=== PATIENT | female | born 1995 ===

== ENCOUNTER 2023-04-18 13:19 | Inpatient (IN) | payer BC ==
[2023-04-18] MEDS ORDERED: Tranexamic Acid 1,000 MG in Sodium Chloride 0.9% 100 ML IV PRN (17:43)
[2023-04-18] MEDS ORDERED: Butorphanol 1 MG/ML SDV IVPUSH PRN (17:43)
[2023-04-18] MEDS ORDERED: Misoprostol 200 MCG Tab PO PRN (17:43)
[2023-04-18] MEDS ORDERED: Water For Irrigation,Sterile 1,000 ML Container IRR PRN (17:43)
[2023-04-18] MEDS ORDERED: Sodium Chloride 0.9% 2.5 ML Syringe FLUSH PRN (17:43)
[2023-04-18] MEDS ORDERED: Carboprost Tromethamine 250 MCG/1 mL Vial IM PRN (17:43)
[2023-04-18] MEDS ORDERED: Ondansetron 4 MG/2 ML SDV IVPUSH PRN (17:43)
[2023-04-18] MEDS ORDERED: Lidocaine 1% 50 ML MDV INJECT PRN (17:43)
[2023-04-18] MEDS ORDERED: Sodium Chloride 0.9% 20 ML SDV IV PRN (17:43)
[2023-04-18] MEDS ORDERED: Methylergonovine 0.2 MG/1 ML Amp IM PRN (17:43)
[2023-04-18] MEDS ORDERED: Sodium Chloride 0.9% 10 ML Syringe FLUSH PRN (17:43)
[2023-04-18] MEDS ORDERED: Lactated Ringers 1,000 ML IV SCH (17:45)
[2023-04-18] MEDS ORDERED: Oxytocin/0.9 % Sodium Chloride 30 UNIT/500 ML BAG IV SCH (17:45)
[2023-04-18] MEDS ORDERED: Ampicillin 2 GM in Sodium Chloride 0.9% 100 ML IV ONE (18:00)
[2023-04-18 18:08] LABS: HEMATOCRIT 39.8 % (36.0-46.0); HEMOGLOBIN 13.3 g/dL (12.0-16.0); MEAN CORPUSCULAR HEMOGLOBIN 32.1 pg (27.0-32.0); MEAN CORPUSCULAR HGB CONC 33.4 g/dL (31.0-37.0); MEAN CORPUSCULAR VOLUME 96.1 fL (80.0-98.0); MEAN PLATELET VOLUME 10.6 fL (7.40-12.00); RED BLOOD CELL COUNT 4.14 M/uL (4.30-5.90); WHITE BLOOD CELL COUNT,WBC 6.39 K/uL (4.0-11.0)
[2023-04-18] MEDS: Ampicillin 1 GM in Sodium Chloride 0.9% 50 ML IV PRN (22:01)
[2023-04-18] MEDS: Nalbuphine HCl 10 MG/ 1ML Amp IVPUSH PRN (23:57)
[2023-04-19] MEDS: Ampicillin 1 GM in Sodium Chloride 0.9% 50 ML IV PRN (02:01)
[2023-04-19] MEDS: Nalbuphine HCl 10 MG/ 1ML Amp IVPUSH PRN (04:14)
[2023-04-19] MEDS ORDERED: Lanolin 100% Cream 7 GM Tube TOP PRN (04:44)
[2023-04-19] MEDS ORDERED: Bisacodyl 10 MG Supp RECTAL PRN (04:44)
[2023-04-19] MEDS ORDERED: Acetaminophen 500 MG Tab PO PRN ×2 (04:44)
[2023-04-19] MEDS ORDERED: Witch Hazel Medicated Pads 40/Jar TOP PRN (04:44)
[2023-04-19] MEDS ORDERED: Ibuprofen 400 MG Tab PO PRN (04:44)
[2023-04-19] MEDS ORDERED: Tranexamic Acid 1,000 MG in Sodium Chloride 0.9% 100 ML IV PRN (04:44)
[2023-04-19] MEDS ORDERED: Methylergonovine 0.2 MG/1 ML Amp IM PRN (04:44)
[2023-04-19] MEDS ORDERED: Ampicillin/Sulbactam Na 3 GM in Sodium Chloride 0.9% 100 ML IV ONE (04:44)
[2023-04-19] MEDS ORDERED: Benzocaine/Menthol 20%-0.5% Spray 78 GM Cannister TOP PRN (04:44)
[2023-04-19 04:50] LABS: PH,UMBILICAL ARTERIAL 7.214 (7.18-7.38)
[2023-04-19 04:51] LABS: PH,UMBILICAL VENOUS 7.316 (7.25-7.45)
[2023-04-19] MEDS: Prenatal Multivitamin with Calcium/Folic Acid/Iron Tab PO SCH (09:27)
[2023-04-19] MEDS: Docusate Sodium 100 MG Cap PO PRN ×2 (09:27→20:55)
[2023-04-19] MEDS: Ampicillin/Sulbactam Na 1.5 GM in Sodium Chloride 0.9% 50 ML IV SCH ×3 (11:00→22:59)
[2023-04-19] MEDS: Ibuprofen 800 MG Tab PO PRN ×2 (11:07→23:04)
[2023-04-20 05:51] LABS: HEMATOCRIT 37.7 % (36.0-46.0); HEMOGLOBIN 12.5 g/dL (12.0-16.0)
[2023-04-20] MEDS: Docusate Sodium 100 MG Cap PO PRN (09:03)
[2023-04-20] MEDS: Prenatal Multivitamin with Calcium/Folic Acid/Iron Tab PO SCH (09:03)
== END 2023-04-20 12:15 | disposition home or self-care (01) | DRG 560 ==
LOC: MW.OBCHECK 13:19 → MW.OB 13:21 → MW.MS 15:33 → MW.OB 15:36 → MW.OBCHECK 15:59 → MW.OB 16:00 → OBSVTOIN 04-19 03:36 → MW.OB 04-19 07:00
PROVIDERS: ADMIT Obstetrics & Gynecology; ATTEND Obstetrics & Gynecology
PROC: 10E0XZZ Delivery of Products of Conception, External Approach (ICD-10-PCS; principal; 2023-04-19)
PROC: 10D17Z9 Manual Extraction of Products of Conception, Retained, Via Natural or Artificial Opening (ICD-10-PCS; 2023-04-19)
PROC: 10907ZC Drainage of Amniotic Fluid, Therapeutic from Products of Conception, Via Natural or Artificial Opening (ICD-10-PCS; 2023-04-19)
DX: O99.824 Streptococcus B carrier state complicating childbirth (principal); Z3A.39 39 weeks gestation of pregnancy; Z37.0 Single live birth; O69.81X0 Labor and delivery complicated by cord around neck, without compression, not applicable or unspecified; O73.1 Retained portions of placenta and membranes, without hemorrhage
CPT/HCPCS: 36415; 59409; 82803; 85014; 85018; 85027; 86592; 86850; 86900; 86901; A9270-GY; J0290; J0295; J2300; J2590; J3490; J7120